=== PATIENT | female | born 1960 | race Caucasian/White ===

== ENCOUNTER 2017-02-06 17:27 | Emergency (ER) | payer BC ==
[~2017-02-06] VITALS: Ht 160 cm; Wt 69.9 kg
[2017-02-06] MEDS ORDERED: BELSOMRA20 MG PO (17:44)
[2017-02-06 19:09] VITALS: BP 109/57
== END 2017-02-06 19:10 | disposition home or self-care (01) ==
LOC: ED 17:27
DX: R51 Headache (principal); R03.0 Elevated blood-pressure reading, without diagnosis of hypertension

== ENCOUNTER 2020-06-14 20:31 | Emergency (ER) | payer BC ==
[~2020-06-14] VITALS: Ht 91.4 cm; Wt 83.9 kg
[~2020-06-14 20:31] MED LIST: BELSOMRA20 MG PO
[2020-06-14 21:37] VITALS: BP 135/77
[2020-06-14 21:51] LABS: HEMATOCRIT 41.7 % (37.0-47.0); MEAN CELL VOLUME 89.3 fl (81.0-99.0); MEAN CORPUSCULAR HGB 28.3 pg (27.0-31.0); MEAN CORPUSCULAR HGB CONC 31.7 g/dl (33.0-37.0); MEAN PLATELET VOLUME 10.7 fl (9.6-12.3); PLATELET COUNT AUTOMATED 236 10*3/uL (130-400); RED BLOOD COUNT 4.67 10*6/uL (4.10-5.10); RED CELL DISTRI WIDTH 13.4 % (0-14.5); WHITE BLOOD COUNT 12.2 10*3/uL (4.8-10.8)
[2020-06-14 22:15] LABS: ALBUMIN 4.2 gm/dl (3.1-4.5); ALKALINE PHOSPHATASE 73 U/L (45-117); BUN 12 mg/dl (7-24); CHLORIDE 105 mmol/L (98-107); CREATININE 0.82 mg/dL (0.55-1.02); LIPASE 370 U/L (73-393); POTASSIUM 3.9 mmol/L (3.5-5.1); SGOT/AST 36 IU/L (3-35); SGPT/ALT 33 U/L (12-78); SODIUM 137 mmol/L (136-145); TOTAL PROTEIN 7.4 gm/dL (6.4-8.2)
[2020-06-14 22:17] LABS: TROPONIN I < 0.015 ng/ml (<0.045)
[2020-06-14 22:21] LABS: PLATELET SUFFICIENCY NORMAL (NORMAL); TOTAL CELLS COUNTED 100 #CELLS
[2020-06-14 22:22] LABS: BURR CELLS FEW
[2020-06-14] MEDS ORDERED: Percocet 325 MG1 TAB PO (23:29)
[2020-06-14] MEDS ORDERED: NORCO 5-325 TA1 EACH PO (23:42)
[2020-06-14] MEDS ORDERED: Orphenadrine C100 MG PO (23:52)
== END 2020-06-15 01:30 | disposition home or self-care (01) ==
LOC: ED 20:31
PROVIDERS: Emergency Medicine Emergency Medical Services
DX: S20.211A Contusion of right front wall of thorax, initial encounter (principal); M54.2 Cervicalgia; Z91.040 Latex allergy status; W16.112A Fall into natural body of water striking water surface causing other injury, initial encounter; Y93.39 Activity, other involving climbing, rappelling and jumping off; Y92.828 Other wilderness area as the place of occurrence of the external cause; Y99.8 Other external cause status

== ENCOUNTER → 2021-09-11 | Outpatient (CLI) | payer OTHER ==
[~2021-09-11] MED LIST changes: +NORCO 5-325 TA1 EACH PO; +Orphenadrine C100 MG PO; +Percocet 325 MG1 TAB PO
== END | disposition home or self-care (01) ==
LOC: COVID19 16:04
PROVIDERS: ATTEND Podiatrist Foot & Ankle Surgery
DX: Z11.52 Encounter for screening for COVID-19 (principal)

== ENCOUNTER → 2022-11-02 | Outpatient (CLI) | payer OTHER | END | disposition home or self-care (01) | LOC: RESCLI 07:49 | PROVIDERS: ATTEND Student in an Organized Health Care Education/Training Program | DX: E66.9 Obesity, unspecified (principal); G47.00 Insomnia, unspecified; E78.00 Pure hypercholesterolemia, unspecified; Z82.49 Family history of ischemic heart disease and other diseases of the circulatory system; Z98.890 Other specified postprocedural states; Z79.899 Other long term (current) drug therapy ==

== ENCOUNTER 2023-04-21 11:38 | Inpatient (IN) | payer OTHER ==
[~2023-04-21] VITALS: Ht 160 cm; Wt 72.6 kg
[2023-04-21] MEDS ORDERED: TRAZODONE50 MG PO (11:50)
[2023-04-21 11:53] VITALS: BP 117/75
[2023-04-21 12:05] LABS: MEAN CELL VOLUME 90.9 fl (81.0-99.0); MEAN CORPUSCULAR HGB 30.1 pg (27.0-31.0); MEAN CORPUSCULAR HGB CONC 33.2 g/dl (33.0-37.0); MEAN PLATELET VOLUME 9.9 fl (9.6-12.3); PLATELET COUNT AUTOMATED 216 10*3/uL (130-400); RED BLOOD COUNT 4.18 10*6/uL (4.10-5.10); RED CELL DISTRI WIDTH 12.4 % (0-14.5); WHITE BLOOD COUNT 10.5 10*3/uL (4.8-10.8)
[2023-04-21 12:06] LABS: MANUAL DIFF REFLEX YES
[2023-04-21 12:18] LABS: ACT PARTIAL THROMBO TIME 29.7 SECONDS (20.0-32.1)
[2023-04-21 12:24] LABS: BASOPHILS 1 % (0-1); OVALOCYTES FEW; PLATELET SUFFICIENCY NORMAL (NORMAL); POLYCHROMASIA SLIGHT; TOTAL CELLS COUNTED 100 #CELLS
[2023-04-21 12:30] LABS: LIPASE 56 U/L (12-53)
[2023-04-21 12:33] LABS: ALKALINE PHOSPHATASE 57 U/L (46-116); BUN 15 mg/dl (9-23); CHLORIDE 105 mmol/L (98-107); POTASSIUM 4.1 mmol/L (3.4-5.1); SGPT/ALT 9 U/L (10-49); TOTAL PROTEIN 6.3 gm/dL (6.0-8.0)
[2023-04-21] MEDS ORDERED: KEFLEX 500 MG E2 CAP PO (13:25)
[2023-04-21] MEDS ORDERED: VICTOZA 2-0.6 MG/0.1 SC (13:26)
[2023-04-21 16:00] VITALS: BP 120/68
[2023-04-21 20:20] VITALS: BP 120/70
[2023-04-21 22:56] VITALS: BP 97/47
[2023-04-22 00:52] VITALS: BP 96/50
[2023-04-22 04:40] VITALS: BP 99/54
[2023-04-22 07:19] LABS: BUN 13 mg/dl (9-23); CHLORIDE 107 mmol/L (98-107); CHOLESTEROL 139 mg/dL (<200); LDL CHOLESTEROL 81 mg/dL (9-159); POTASSIUM 4.4 mmol/L (3.4-5.1); TRIGLYCERIDES 97 mg/dl (<150)
[2023-04-22 07:48] VITALS: BP 121/66
[2023-04-22 11:00] VITALS: BP 106/40
[2023-04-22] MEDS ORDERED: VISTARIL25 MG PO (12:35)
== END 2023-04-22 13:13 | disposition home or self-care (01) | DRG 880 ==
LOC: ED 11:38 → EDHOLD 12:41
PROVIDERS: Emergency Medicine; ADMIT Internal Medicine; ATTEND Internal Medicine
PROC: 4A02XM4 Measurement of Cardiac Total Activity, External Approach (ICD-10-PCS; principal; 2023-04-22)
DX: F41.9 Anxiety disorder, unspecified (principal); W18.39XA Other fall on same level, initial encounter; F43.9 Reaction to severe stress, unspecified; E66.09 Other obesity due to excess calories; S20.219A Contusion of unspecified front wall of thorax, initial encounter; Y93.89 Activity, other specified; Y92.89 Other specified places as the place of occurrence of the external cause; Y99.8 Other external cause status; Z79.899 Other long term (current) drug therapy; Z79.1 Long term (current) use of non-steroidal anti-inflammatories (NSAID); Z98.891 History of uterine scar from previous surgery

== ENCOUNTER → 2024-06-26 | Outpatient (CLI) | payer OTHER ==
[~2024-06-26] MED LIST changes: +KEFLEX 500 MG E2 CAP PO; +TRAZODONE50 MG PO; +VICTOZA 2-0.6 MG/0.1 SC; +VISTARIL25 MG PO
== END | disposition home or self-care (01) ==
LOC: RESCLI 15:18
PROVIDERS: ATTEND Internal Medicine
DX: E66.9 Obesity, unspecified (principal); Z98.890 Other specified postprocedural states; E78.00 Pure hypercholesterolemia, unspecified; F10.90 Alcohol use, unspecified, uncomplicated; Z68.30 Body mass index [BMI] 30.0-30.9, adult; Z82.49 Family history of ischemic heart disease and other diseases of the circulatory system; Z79.899 Other long term (current) drug therapy